=== PATIENT | male | born 1960 | race Caucasian/White ===

== ENCOUNTER → 2024-07-17 | Outpatient (CLI) | payer BC, SELFPAY ==
[2024-07-26 06:35] LABS: Testosterone, Free,Dialysis 156.7 pg/mL (35.0-155.0); Testosterone, Total, Dialysis 821 ng/dL (250-1100)
== END | disposition home or self-care (01) ==
LOC: COPL 10:51
PROVIDERS: PCP Registered Nurse; Referring Provider Registered Nurse; Visit Provider Registered Nurse
DX: E29.1 Testicular hypofunction (principal)
CPT/HCPCS: 36415; 84402; 84403

== ENCOUNTER 2025-01-27 11:44 | Emergency (ER) | payer BC, SELFPAY ==
[2025-01-27] VITALS (13 sets, daily range): BP systolic 136–174; BP diastolic 75–98; PULSE 68–83; RESP 16–20; TEMP 36.2–36.3; O2SAT 91–98; BMI 40.7
--- NOTE | 2025-01-27 12:18 | EDNOTE_ITS ---
ED Back Injury Pain RME/HPI General Chief Complaint: Back Pain/Injury Stated Complaint: BACK PAIN Time Seen by Provider: 01/27/25 11:55 Arrival date/time: 01/27/25 11:44 RME / HPI RME / HPI Narrative: 64-year-old male presents to the ED via ambulance with a complaint of left-sided low back pain that radiates down to his mid thigh. The pain started at the end of week before last, approximately the , after he had been s hoveling a large amount of sand while filling in gaps around his septic tank. He worked at this task for several days and noticed some pain and spasms in the left lower back. He was seen by his primary care physician this past Tuesday and was given steroids and pain medication however he does not recall the names of these medications. He states they are not helping. He denies any numbness, tingling, weakness to his extremities. He denies any loss of bladder or bowel control. He denies previous injury to his back. Related Data Home Medications ?Medication ?Instructions ?Recorded ?Confirmed rosuvastatin 20 mg tablet 20 mg PO QDAY 10/16/2101/27 cyclobenzaprine 10 mg tablet mg 01/27/25 losartan 50 mg tablet mg 01/27/25 prednisone 10 mg tablet mg 01/27/25 Previous Rx's ?Medication ?Instructions ?Recorded hydrocodone 10 mg-acetaminophen 1 tab PO Q8H PRN pain #10 tabs 01/27/25 325 mg tablet Allergies Allergy/AdvReac Type Severity Reaction Status Date / Time No Known Allergies Allergy Verified 10/07/23 09:20 Review of Systems Review of Systems Systems Reviewed: All systems reviewed, normal except as documented Past Medical History Past Medical History NEUROLOGIC: Negative Neurological Disorders or Seizures CARDIAC: Positive Cardiac Disorders, Hypercholesterolemia and Hypertension; Negative Congestive Heart Failure RESPIRATORY: Positive Asthma, Bronchitis and Pneumonia; Negative Chronic Obstructive Pulmonary Disease (COPD) GASTROINTESTINAL: Positive Gastrointestinal Disorders, Diverticulosis, Hemorrhoids, Gastroesophageal Reflux Disease and Obesity GENITOURINARY: Negative Genitourinary Disorders or Renal Disease MUSCULOSKELETAL: Positive Musculoskeletal Disorders and Arthritis ENDOCRINE: Negative Endocrine Disorders, Diabetes Mellitus Type 1 or Diabetes Mellitus Type 2 HEMATOLOGIC: Negative Blood Disorders or Anemia OTHER HISTORY: Positive Chicken Pox; Negative Autoimmune Disease, Blood Transfusions, Blood Transfusion Reaction, Anesthesia Reactions, Measles, Mumps or Cancer Surgical History SURGICAL: Positive Joint Replacement Social History SMOKING STATUS: Never smoker ED Exam Narrative Physical exam: Alert and oriented 64-year-old male, no acute distress, resting on gurney comfortably. Bowel sounds are present x 4, abdomen is soft and nontender. After having the patient sit up on the side of the gurney, his neck is supple an d nontender to the cervical, thoracic, or lumbar spine. There is also no paraspinal tenderness to the 3 areas. No right sciatic notch tenderness. Positive left sciatic notch tenderness. Negative right and left straight leg raise. Equal pedal push/pull. Normal DTRs bilaterally to the lower extremities. CMS intact to bilateral lower extremities. Blood pressure is elevated. He states he did not take his BP meds this morning. Course Course Course Narrative: Lumbar Spine X-rays findings: Impression: L5-S1 grade 2 spondylolisthesis with advanced degenerative disc disease and spinal stenosis. Patient was given Toradol 30mg IM, Valium 10mg and Hydrocodone 10mg PO. Quality Measures none Orders Category Date Time Status XR lumbar spine 2-3V Stat Exams 01/27/25 12:30 Completed Diazepam [Valium] Med 01/27/25 12:30 Discontinued 10 mg PO X1 ONE HYDROcodone/APAP 10/325 [[place] 10/325] Med 01/27/25 16:17 Discontinued 1 tab PO X1 ONE Ketorolac Inj [Toradol Inj] Med 01/27/25 12:30 Discontinued 30 mg IM X1 ONE Vital Signs Vital signs: Vital Signs Pulse Oximetry (%) 96 01/27/25 11:51 Back Pain / Injury MDM Narrative MDM Narrative:: 64-year-old male presents to the ED via ambulance with a complaint of left-sided low back pain that radiates down to his mid thigh. The pain started at the end of week before last, approximately the , after he had been shoveling a large amount of sand while filling in gaps around his septic tank. He worked at this task for several days and noticed some pain and spasms in the left lower back. He was seen by his primary care physician this past Tuesday and was given steroids and pain medication however he does not recall the names of these medications. He states they are not helping. He denies any numbness, tin gling, weakness to his extremities. He denies any loss of bladder or bowel control. He denies previous injury to his back. Alert and oriented 64-year-old male, no acute distress, resting on gurney c omfortably. Bowel sounds are present x 4, abdomen is soft and nontender. After having the patient sit up on the side of the gurney, his neck is supple and nontender to the cervical, thoracic, or lumbar spine. There is also no paraspinal tenderness to the 3 areas. No right sciatic notch tenderness. Positive left sciatic notch tenderness. Negative right and left straight leg raise. Equal pedal push/pull. Normal DTRs bilaterally to the lower extremities. CMS intact to bilateral lower extremities. Blood pressure is elevated. He states he did not take his BP meds this morning. Lumbar Spine X-rays findings: Impression: L5-S1 grade 2 spondylolisthesis with advanced degenerative disc disease and spinal stenosis. Patient was given Toradol 30mg IM, Valium 10mg and Hydrocodone 10mg PO. Patient data External records reviewed:: [facility] previous records Clinical information provided by:: patient Social determinants that could affect healthcare access:: none Patient has the following chronic illnesses:: NSTEMI, pancreatitis, viral myocarditis, elevated LFTs. How is presenting disease/condition affected by chronic disease/condition?: uneffected by Evaluation data The following diagnostics were reviewed and interpreted by me:: radiology exam(s) Lab and/or radiology exams considered but not ordered:: N/A Interpretation Summary: . Medications / Prescriptions Medications or Prescriptions considered but not ordered:: N/A Medication administrations:: Medication Administration History Discontinued Medications Hydrocodone Bitart/Acetaminophen (Hydrocodone/Apap 10/325 Tab) 1 tab PO X1 ONE Stop: 01/27/25 16:18 Diazepam (Diazepam 5 Mg Tablet) 10 mg PO X1 ONE Stop: 01/27/25 12:31 Last Admin: 01/27/25 13:08 Dose: 10 mg Documented By: CG Ketorolac Tromethamine (Ketorolac Inj 60 Mg/2 Ml Vial) 30 mg IM X1 ONE Stop: 01/27/25 12:31 Last Admin: 01/27/25 13:07 Dose: 30 mg Documented By: JUAN Toradol 30 mg IM, diazepam 10 mg and Hydrocodone 10mg p.o. Consultations Consultation(s) initiated? (list below): No Diagnosis Differential diagnosis back pain/injury: lumbar radiculopathy, sciatica and strain of lumbar region Most likely diagnosis given after review of the tests above:: Strain of lumbar region with sciatica Admission Indicated Admission indicated?: not indicated Explain why admission is indicated or not indicated:: Patient is stable for discharge Admission Request Was there a request for admission?: No Disposition Plan Disposition Plan: Discharge Discharge Attestation Discharge Attestation: The patient and all family members were given an opportunity to ask questions and understood the discharge instructions. Discharge instructions specifically effects, indications for sooner follow up or return to the emergency department, and the expected course of current diagnosis. Patient condition: Stable Discharge Plan Plan Patient Disposition: HOME (Self Care) Discharge Disposition comment: Stable and Improved Prescriptions/Referrals Prescriptions/Med Rec: New hydrocodone-acetaminophen 10-325 mg tablet 1 tab PO Q8H MDD 30mg PRN (Reason: pain) Qty: 10 0RF No Action rosuvastatin 20 mg tablet 20 mg PO QDAY Patient Comments: TAKE 1 TABLET BY MOUTH EVERY DAY losartan 50 mg tablet Patient Comments: TAKE 1 TABLET BY MOUTH EVERY DAY FOR 90 DAYS cyclobenzaprine 10 mg tablet prednisone 10 mg tablet Referrals: Leanna Smith MD [Primary Care Provider] - In 1 week Problem List Clinical Impression: Degenerative disc disease at L5-S1 level, Strain of lumbar region Patient/Caregiver Discharge Instructions Education Materials: ED Back Sprain/Strain, ED Degenerative Disk Disease Additional Instructions: Follow-up with your primary care physician within 24 hours. Return to the ED for any new or worsening symptoms. Print Language: Setswana Stand Alone Forms: Randa Award Info., Patient Portal Info Letter SIMONE/EDUAR Supervising Physician SIMONE/EDUAR Supervising Physician: Dr. Sharpe
--- NOTE | 2025-01-27 12:30 | XR_ITS ---
Examination: Lumbar spine 3 views Technique: AP lateral coned lateral lower lumbar spine 3 views Date and time: January 27, 2025 12:40 PM Comparison the 2010 Indications: Low back pain several weeks. Findings: Spondylolisthesis L5 on S1 with advanced degenerative disc disease at this level Moderate degenerative disc disease L3-L4 No lumbar fracture Impression: L5-S1 grade 2 spondylolisthesis with advanced degenerative disc disease and spinal stenosis
[2025-01-27] MEDS: KETOROLAC INJ 60 MG/2 ML VIAL 30 MG IM (13:07)
[2025-01-27] MEDS: DIAZEPAM 5 MG TABLET 10 MG PO (13:08)
[2025-01-27] MEDS: HYDROcodone/APAP 10/325 TAB PO (17:02)
== END 2025-01-27 17:16 | disposition home or self-care (01) ==
PROVIDERS: Emergency Provider Emergency Medicine; PCP Family Medicine
DX: M51.360 Other intervertebral disc degeneration, lumbar region with discogenic back pain only (principal); M51.372 Other intervertebral disc degeneration, lumbosacral region with discogenic back pain and lower extremity pain; S39.012A Strain of muscle, fascia and tendon of lower back, initial encounter; X58.XXXA Exposure to other specified factors, initial encounter; M43.17 Spondylolisthesis, lumbosacral region; M48.07 Spinal stenosis, lumbosacral region
CPT/HCPCS: 72100; 96372; 99283; J1885; A9270

== ENCOUNTER → 2025-02-21 | Outpatient (CLI) | payer BC, SELFPAY ==
--- NOTE | 2025-02-21 12:00 | XR_ITS ---
Examination: MRI lumbar spine without contrast Date and time of exam: February 21, 2025 1312 hours INDICATIONS: Lower back pain beginning 3.5 weeks ago TECHNIQUE: Multiple MRI axial sagittal images lumbar spine FINDINGS: There is grade 1 spondylolisthesis L5 on S1 with advanced degenerative disc disease at this level Diffuse lumbar disc desiccation No lumbar fracture L5-S1 8 mm lumbar disc bulge extending to the left foraminal region L4-L5 2 mm central lumbar disc bulge L3-L4 no disc protrusion L2-L3 no disc protrusion L1-L2 no disc protrusion IMPRESSION: Grade 1 spondylolisthesis L5 on S1 with advanced degenerative disc disease at this level L5-S1 8 mm central lumbar disc bulge extending to the left foraminal region but no definite ganglionic compression
== END | disposition home or self-care (01) ==
LOC: SMRI 11:46
PROVIDERS: PCP Registered Nurse; Referring Provider Student in an Organized Health Care Education/Training Program; Visit Provider Student in an Organized Health Care Education/Training Program
DX: M43.17 Spondylolisthesis, lumbosacral region (principal); M51.370 Other intervertebral disc degeneration, lumbosacral region with discogenic back pain only
CPT/HCPCS: 72148